=== PATIENT | female | born 1975 | race Two or more races ===

== ENCOUNTER → 2018-03-31 | Outpatient (CLI) | payer OTHER | END | disposition home or self-care (01) | LOC: RAD 16:50 | PROVIDERS: ATTEND Family Medicine | DX: R07.9 Chest pain, unspecified (principal) | CPT/HCPCS: 71046 ==

== ENCOUNTER 2021-04-12 14:50 | Emergency (ER) | payer OTHER ==
[~2021-04-12] VITALS: Ht 157.5 cm; Wt 92.1 kg
--- NOTE | 2021-04-12 15:39 | NUR ---
ASSUMED CARE OF PT. SHE STATES SHE HAS HAD BACK PAIN X7 YEARS, THIS MORNING SHE HAND BENT OVER TO PANTS ON AND HER BACK CAUGHT AND SHE COULDN'T STRAIGHTEN UP. SHE REPORTS PULSATING MIDBACK PAIN. REPORTS NEW INTERMITTENT NUMBNESS ON RIGHT LEG. PT PLACED IN GOWN, HOOKED TO MONITOR. NADN, CALL LIGHT W/IN REACH.
[2021-04-12 16:29] VITALS: BP 145/79
[2021-04-12] MEDS ORDERED: KETOROLAC 30 MG/1 ML IM ONE (16:30)
[2021-04-12] MEDS ORDERED: KETOROLAC 60 MG/2 ML ONE (16:31)
--- NOTE | 2021-04-12 16:37 | NUR ---
Patient given discharge instructions and they have confirmed that they understand the instructions. Patient ambulatory with steady gait. Pt medicated per JAN.
== END 2021-04-12 17:12 | disposition home or self-care (01) ==
LOC: ED 17:00
DX: M54.5 Low back pain (principal); R20.2 Paresthesia of skin
CPT/HCPCS: 93005; 96372; 99283; J1885